=== PATIENT | male | born 1950 | race Two or more races ===

== ENCOUNTER 2017-01-05 20:48 | Emergency (ER) | payer BC ==
--- NOTE | 2017-01-05 21:22 | UC ---
Abdominal Pain Male HPI - HPI Summary HPI Summary: LLQ ABDOMINAL PAIN AND FEVER (101.4F) FOR TWO DAYS. HISTORY OF DIVERTICULITIS SIX YEARS AGO. NO NAUSEA NO VOMITING. NO DIARRHEA OR CONSTIPATION. 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 Onset/Duration: Gradual Onset, Lasting Days, Still Present Severity Initially: Mild Severity Currently: Moderate Location: Discrete At: LLQ Radiates to: LLQ Character: Aching, Dull Associated Signs And Symptoms: Negative: Fever, Cough, Chest Pain, Back Pain, Constipation, Blood in Stool, Urinary Symptoms, Decreased Appetite, Vomiting, Diarrhea - Risk Factors Testicular Torsion: Negative Cardiac Risk Factors: Negative - Allergies/Home Medications Allergies/Adverse Reactions: Allergies Allergy/AdvReac Type Severity Reaction Status Date / Time No Known Allergies Allergy Verified 01/05/17 20:55 Home Medications: Home Medications Glucosamine-Chondroitin [Glucosamine & Chondroitin 500-400 mg] 1 cap PO DAILY [History Confirmed 01/05/17] PMH/Surg Hx/FS Hx/Imm Hx Previously Healthy: Yes - Surgical History Surgical History: Yes Surgery Procedure, Year, and Place: LUMBAR L4-L5 SURGERY, LEFT KNEE SCOPE, RT KNEE SCOPE, LEFT ROTATOR CUFF REPAIR - Family History Known Family History: Negative: Blood Disorder - Social History Occupation: Employed Full-time Lives: With Family Alcohol Use: Occasionally Alcohol Amount: 2 BEERS/DAY Substance Use Type: None Smoking Status (MU): Never Smoked Tobacco Type: Cigarettes Amount Used/How Often: 1/2 PACK OR LESS PER WEEK Length of Time of Smoking/Using Tobacco: MANY YEARS Have You Smoked in the Last Year: Yes - Immunization History Most Recent Influenza Vaccination: 2013 Most Recent Tetanus Shot: UNKNOWN Most Recent Pneumonia Vaccination: NEVER Review of Systems Constitutional: Negative Skin: Negative Eyes: Negative ENT: Negative Respiratory: Negative Cardiovascular: Negative Gastrointestinal: Abdominal Pain - LLQ PAIN Genitourinary: Negative Motor: Negative Neurovascular: Negative Musculoskeletal: Negative Neurological: Negative Psychological: Negative All Other Systems Reviewed And Are Negative: Yes Physical Exam Triage Information Reviewed: Yes Appearance: Well-Appearing, Well-Nourished, Pain Distress - MODERATE Vital Signs: Initial Vital Signs Temp 100.3 F 01/05/17 20:50 Pulse 71 01/05/17 20:50 Resp 16 01/05/17 20:50 BP 125/70 01/05/17 20:50 Pulse Ox 95 01/05/17 20:50 Vital Signs Reviewed: Yes Eye Exam: Normal ENT Exam: Normal ENT: Positive: Normal ENT inspection, Hearing grossly normal, Pharynx normal, TMs normal Dental Exam: Normal Neck exam: Normal Neck: Positive: Supple, Nontender, No Lymphadenopathy Respiratory Exam: Normal Respiratory: Positive: Chest non-tender, Lungs clear, Normal breath sounds, No respiratory distress, No accessory muscle use Cardiovascular Exam: Normal Cardiovascular: Positive: RRR, No Murmur, Pulses Normal, Brisk Capillary Refill Abdomen Description: Positive: No Organomegaly, Soft. Negative: Nontender - PAIN TO PALPTION: LLQ, CVA Tenderness (R), CVA Tenderness (L), Distended, Guarding, McBurney's Point Tenderness Bowel Sounds: Positive: Present Musculoskeletal Exam: Normal Neurological Exam: Normal Psychological Exam: Normal Skin Exam: Normal Abd Pain Male Course/Dx - Differential Dx/Clinical Impression Differential Diagnosis/HQI/PQRI: Constipation, Diverticulitis, Ischemic Bowel, Ureteral Stone Provider Diagnoses: LLQ ABDOMINAL PAIN - Physician Notification/Consults Discussed Patient Care With: Maurice Snell Time Discussed With Above Provider: 21:10 Instructed by Provider To: MD Will See In ED Discharge - Discharge Plan Condition: Stable Disposition: TRANS HIGHER LVL OF CARE FAC Referrals: Farzaneh Posey [Primary Care Provider] -
[2017-01-05 21:30] VITALS: BP 126/72
== END 2017-01-05 21:25 | disposition short-term general hospital (02) ==
LOC: UCEAST 20:48
DX: R10.32 Left lower quadrant pain (principal); Z87.19 Personal history of other diseases of the digestive system; F17.210 Nicotine dependence, cigarettes, uncomplicated
CPT/HCPCS: 99212; G0463

== ENCOUNTER 2017-01-05 21:38 | Emergency (ER) | payer BC ==
[2017-01-05] MEDS ORDERED: NS 0.9% 1000 ML* 1,000 ML IV ONE (22:42)
[2017-01-05 22:54] LABS: Hematocrit 40 % (42-52); Hemoglobin 13.6 g/dl (14.0-18.0); Mean Corpuscular HGB Conc 34 g/dl (31-36); Mean Corpuscular Hemoglobin 32 pg (27-31); Mean Corpuscular Volume 94 fL (80-94); Mean Platelet Volume 8 um3 (7.4-10.4); Red Blood Count 4.29 10^6/ul (4.0-5.4); Red Cell Distribution Width 13 % (10.5-15); White Blood Count 9.1 10^3/ul (3.5-10.8)
[2017-01-05 23:02] LABS: Albumin 3.8 g/dL (3.2-5.2); BUN/Creatinine Ratio 19.8 (8-20); C Reactive Protein 29.3 mg/L (< 5.00); Calcium 9.1 mg/dL (8.6-10.3); EGFR African American 107.2 (>60); EGFR Non-African American 83.4 (>60); Globulin 2.7 g/dL (2-4); Magnesium 1.8 mg/dL (1.9-2.7); Potassium 4.6 mmol/L (3.5-5.0); Total Bilirubin 0.8 mg/dL (0.2-1.0); Total Protein 6.5 g/dL (6.4-8.9)
--- NOTE | 2017-01-05 23:04 | ED ---
Berkley Burdick Alfonso, scribed for Maurice Snell MD on 01/05/17 at 2259 . Abdominal Pain/Male - HPI Summary HPI Summary: This is patient is a 66 year old M presenting to [facility] c/o dull LLQ abdominal pain that began 2 days ago. He reports the pain began gradually and has been getting gradually worse. He rates the pain 4/10 in severity. Sx aggravated by exertion and alleviated by nothing. He reports a frontal headache, body aches, and a fever. He denies N/V/D, urinary symptoms, calf swelling, or change in appetite. The patient reports having similar symptoms 6 years ago diagnosed as diverticulitis. - History of Current Complaint Chief Complaint: EDAbdPain Stated Complaint: ABD PAIN/SENT FROM [facility] C[facility] Time Seen by Provider: 01/05/17 22:30 Hx Obtained From: Patient Onset/Duration: Gradual Onset, Lasting Days - 2 days, Worse Since Timing: Constant, Lasting Days - 2 days Severity Initially: Mild Severity Currently: Mild Pain Intensity: 4 Pain Scale Used: 0-10 Numeric Location: Discrete At: LLQ Character: Dull Aggravating Factor(s): Other: - Exertion Alleviating Factor(s): Nothing Associated Signs And Symptoms: Positive: Other - Positive frontal headache; negative calf swelling. Negative: Urinary Symptoms, Decreased Appetite, Nausea , Vomiting, Diarrhea - Allergies/Home Medications Allergies/Adverse Reactions: Allergies Allergy/AdvReac Type Severity Reaction Status Date / Time No Known Allergies Allergy Verified 01/05/17 20:55 PMH/Surg Hx/FS Hx/Imm Hx Endocrine/Hematology History: Denies: Hx Diabetes Cardiovascular History: Denies: Hx Hypertension, Hx Pacemaker/ICD Respiratory History: Denies: Hx Asthma History: Denies: Hx Dialysis, Hx Renal Disease Musculoskeletal History: Reports: Hx Tendonitis - BILAT Sensory History: Reports: Hx Contacts or Glasses - GLASSES Denies: Hx Hearing Aid Opthamlomology History: Reports: Hx Contacts or Glasses - GLASSES Psychiatric History: Denies: Hx Panic Disorder - Surgical History Surgery Procedure, Year, and Place: LUMBAR L4-L5 SURGERY, LEFT KNEE SCOPE, RT KNEE SCOPE, LEFT ROTATOR CUFF REPAIR Hx Anesthesia Reactions: No Infectious Disease History: No Infectious Disease History: Denies: Traveled Outside the [place] in Last 30 Days - Family History Known Family History: Negative: Blood Disorder - Social History Alcohol Use: Occasionally Alcohol Amount: 2 BEERS/DAY Substance Use Type: Reports: None Smoking Status (MU): Former Smoker Type: Cigarettes Amount Used/How Often: 1/2 PACK OR LESS PER WEEK Length of Time of Smoking/Using Tobacco: MANY YEARS Have You Smoked in the Last Year: Yes Review of Systems Positive: Fever Positive: Abdominal Pain - dull LLQ abdominal pain. Negative: Vomiting, Diarrhea, Nausea Positive: no symptoms reported Positive: Myalgia - Positive body aches, Edema - Negative calf swelling Neurological: Other - Positive frontal headache; negative change in appetite All Other Systems Reviewed And Are Negative: Yes Physical Exam Triage Information Reviewed: Yes Vital Signs On Initial Exam: Initial Vitals Temp Pulse Resp BP Pulse Ox 99.7 F 73 18 116/67 95 01/05/17 21:42 01/05/17 21:42 01/05/17 21:42 01/05/17 21:42 01/05/17 21:42 Vital Signs Reviewed: Yes Appearance: Positive: Well-Appearing, Pain Distress - mikld discomfort Skin: Positive: Warm Head/Face: Positive: Normal Head/Face Inspection Eyes: Positive: PRATIBHA ENT: Positive: Hearing grossly normal Neck: Positive: Supple Respiratory/Lung Sounds: Positive: Clear to Auscultation, Breath Sounds Present Cardiovascular: Positive: Normal Abdomen Description: Positive: No Organomegaly, Soft, Other: - mild llq tenderness. Negative: Distended, Guarding Bowel Sounds: Positive: Present Musculoskeletal: Positive: Strength/ROM Intact Neurological: Positive: Alert, Oriented to Person Place, Time Psychiatric: Positive: Affect/Mood Appropriate - Kirby Coma Scale Coma Scale Total: 15 Diagnostics - Vital Signs Vital Signs Temp Pulse Resp BP Pulse Ox 01/05/17 22:33 99.7 F 73 18 116/67 95 01/05/17 21:42 99.7 F 73 18 116/67 95 - Laboratory Lab Results: Lab Results 01/05/17 Range/Units 22:38 WBC 9.1 (3.5-10.8) 10^3/ul RBC 4.29 (4.0-5.4) 10^6/ul Hgb 13.6 L (14.0-18.0) g/dl Hct 40 L (42-52) % MCV 94 (80-94) fL MCH 32 H (27-31) pg MCHC 34 (31-36) g/dl RDW 13 (10.5-15) % Plt Count 191 (150-450) 10^3/ul MPV 8 (7.4-10.4) um3 Neut % (Auto) 76.5 (38-83) % Lymph % (Auto) 9.1 L (25-47) % [place] % (Auto) 10.1 H (1-9) % Eos % (Auto) 0.6 (0-6) % Baso % (Auto) 3.7 H (0-2) % Absolute Neuts (auto) 7.0 (1.5-7.7) 10^3/ul Absolute Lymphs (auto) 0.8 L (1.0-4.8) 10^3/ul Absolute Monos (auto) 0.9 H (0-0.8) 10^3/ul Absolute Eos (auto) 0.1 (0-0.6) 10^3/ul Absolute Basos (auto) 0.3 H (0-0.2) 10^3/ul Absolute Nucleated RBC 0 10^3/ul Nucleated RBC % 0 Result Diagrams: 01/05/17 22:38 01/05/17 22:38 Lab Statement: Any lab studies that have been ordered have been reviewed, and results considered in the medical decision making process. - CT CT A/P w/ contrast CT Interpretation Completed By: Radiologist - Moderate degree of acute proximal sigmoid diverticulitis, without secondary complication. Re-Evaluation - Re-Evaluation First Eval Change: Improved - results d/w pt Abdominal Pain Fem Course/Dx - Diagnoses Provider Diagnoses: Diverticulitis Discharge - Discharge Plan Condition: Stable Disposition: HOME Patient Education Materials: Diverticulitis (ED) Referrals: Farzaneh Posey [Primary Care Provider] - 7 Days The documentation as recorded by the Berkley juárez Alfonso accurately reflects the service I personally performed and the decisions made by , Maurice Snell MD.
[2017-01-05] MEDS ORDERED: Iohexol 300* (CONTRAST) 10 ML SDV IV ONE (23:22)
[2017-01-06] MEDS ORDERED: metroNIDAZOLE IV 500 MG/100ML* 500 MG/100 ML BAG IVPB ONE (01:50)
[2017-01-06] MEDS ORDERED: Levofloxacin 500 MG IVPREMIX(* 500 MG/100 ML BAG IVPB ONE (01:50)
[2017-01-06 04:14] VITALS: BP 122/56
--- NOTE | 2017-01-06 07:48 | RAD ---
INDICATION: Left lower quadrant abdominal pain. COMPARISON: Comparison is made with a prior CT of the abdomen and pelvis from May 30, 2010. TECHNIQUE: A CT scan of the abdomen and pelvis was performed with intravenous and oral contrast following intravenous injection of 131 ml of Omnipaque 300 nonionic contrast. Contiguous axial sections were obtained from the lung bases through the symphysis pubis. Images were reconstructed in the coronal and sagittal planes. FINDINGS: The lung bases are clear. No pleural effusion is present. The liver and spleen are normal in size. There are a couple small hypodense hepatic lesions within the right and left hepatic lobes measuring 5 mm each which are too small to characterize by CT possibly representing cysts. The lesion in the left hepatic lobe is unchanged from the prior exam. The right hepatic lesion is not well seen on the prior noncontrast study. No calcific gallstones are seen. The pancreas appears to be within normal limits. The kidneys and adrenal glands are normal in size. No hydronephrosis is seen. No significant focal renal abnormality is seen. The aorta is normal in caliber and demonstrates homogeneous contrast opacification. No significant enlarged retroperitoneal lymph nodes are seen. The stomach, small and large bowel appear nondistended. The appendix is within normal limits. There is moderate to severe descending and sigmoid diverticulosis with focal wall thickening of the distal descending and proximal sigmoid colon and stranding in the adjacent mesenteric fat. These findings are nonspecific although most consistent with diverticulitis. No abscess is seen. No free intraperitoneal air or fluid is seen. No significant focal osseous abnormality is seen. IMPRESSION: MODERATE TO SEVERE SIGMOID DIVERTICULOSIS AND THICKENING OF THE WALL OF THE DISTAL DESCENDING AND PROXIMAL SIGMOID COLON WITH SURROUNDING INTERSTITIAL STRANDING NONSPECIFIC ALTHOUGH MOST CONSISTENT WITH DIVERTICULITIS WITHOUT EVIDENCE FOR ABSCESS OR FREE AIR.
== END 2017-01-06 04:14 | disposition home or self-care (01) ==
LOC: ED 21:38
DX: K57.92 Diverticulitis of intestine, part unspecified, without perforation or abscess without bleeding (principal); Z87.891 Personal history of nicotine dependence
CPT/HCPCS: 36415; 74177; 80053; 83605; 83690; 83735; 85025; 86140; 96360; 96374; 96375; 99282; J1956; Q9967

== ENCOUNTER 2017-06-12 13:45 | Emergency (ER) | payer BC ==
[2017-06-12 15:53] VITALS: BP 146/72
[2017-06-12 15:57] LABS: Hematocrit 42 % (42-52); Hemoglobin 14.1 g/dl (14.0-18.0); Mean Corpuscular HGB Conc 34 g/dl (31-36); Mean Corpuscular Hemoglobin 32 pg (27-31); Mean Corpuscular Volume 95 fL (80-94); Mean Platelet Volume 7 um3 (7.4-10.4); Red Blood Count 4.39 10^6/ul (4.0-5.4); Red Cell Distribution Width 14 % (10.5-15); White Blood Count 10.2 10^3/ul (3.5-10.8)
[2017-06-12 16:19] LABS: Albumin 3.7 g/dL (3.2-5.2); BUN/Creatinine Ratio 12.5 (8-20); C Reactive Protein 16.71 mg/L (< 5.00); Calcium 8.6 mg/dL (8.6-10.3); EGFR African American 100.8 (>60); EGFR Non-African American 78.4 (>60); Globulin 2.6 g/dL (2-4); Potassium 4.2 mmol/L (3.5-5.0); Total Bilirubin 0.9 mg/dL (0.2-1.0); Total Protein 6.3 g/dL (6.4-8.9)
[2017-06-12 16:32] LABS: Urine Bilirubin Negative (Negative); Urine Glucose Negative (Negative); Urine Nitrite Negative (Negative)
[2017-06-12] MEDS ORDERED: Iohexol 300* (CONTRAST) 10 ML SDV IV ONE (17:30)
--- NOTE | 2017-06-12 18:20 | RAD ---
INDICATION: Left lower quadrant pain COMPARISON: CT January 06, 2017 TECHNIQUE: Axial source images were obtained from the hemidiaphragms to the symphysis pubis following administration of oral and intravenous contrast. 131 mL Omnipaque 300 was utilized. Coronal and sagittal reconstructed images were acquired. Lung bases: The lung bases are clear. Liver: The liver is normal in size. There are no masses. There is no ductal dilatation. Gallbladder: There are no calcified gallstones. There is no evidence of wall thickening or pericholecystic fluid. Spleen: The spleen is normal in size. There are no masses. Pancreas: There is no focal pancreatic mass or ductal dilatation. Adrenal glands: There is no evidence of adrenal mass. Kidneys: The kidneys are normal in size and position. There are prompt nephrograms and there is prompt excretion bilaterally. There are no renal parenchymal masses. There is no evidence of nephrolithiasis. Adenopathy: There is no evidence of adenopathy by size criteria. Fluid collections: There are no free or localized fluid collections. Vessels:There are no significant atherosclerotic changes involving the aorta. There is no focal aneurysm. The iliac vessels are normal in caliber. The IVC appears normal. GI tract: The upper GI tract is unremarkable. There are moderate diverticula of the descending colon. At the level of the distal descending colon there is bowel wall thickening and adjacent mesenteric stranding consistent with acute diverticulitis. There are extensive diverticula of the remainder the sigmoid colon. There are no findings of obstruction, perforation, or abscess formation. Pelvic organs: The prostate and seminal vesicles appear normal Bladder: There are no bladder masses. Abdominal and pelvic soft tissues: Small bilateral fat-containing inguinal hernias. Osseous structures: No acute osseous changes. Hemilaminectomy left L4-L5 level. Other: None IMPRESSION: CT FINDINGS OF ACUTE DIVERTICULITIS WITHOUT OBSTRUCTION OR ABSCESS.
[2017-06-12] MEDS ORDERED: Ciprofloxacin 400MG IVPREMIX(* 400 MG/200 ML BAG IVPB ONE (18:32)
[2017-06-12] MEDS ORDERED: metroNIDAZOLE TAB* 250 MG PO ONE ×2 (18:33→20:29)
[2017-06-12] MEDS ORDERED: Ibuprofen TAB* 600 MG PO ONE (19:53)
[2017-06-12] MEDS ORDERED: Acetaminophen TAB* 325 MG ONE (19:56)
--- NOTE | 2017-06-15 13:21 | ED ---
Chucky Burdick Thomas, scribed for Cholo Campbell MD on 06/12/17 at 1550 . Abdominal Pain/Male - HPI Summary HPI Summary: The pt is a 66 y/o M presenting to the ED c/o LLQ abd pain that began yesterday. The pain is constant. The pain is rated 2/10 at baseline but spikes significantly on palpation. The pain is alleviated by nothing. 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 Pt denies fever, N/V/D, constipation, and anorexia. PMHx includes diverticulitis. - History of Current Complaint Chief Complaint: EDAbdPain Stated Complaint: ABD PAIN Time Seen by Provider: 06/12/17 15:28 Hx Obtained From: Patient Onset/Duration: Lasting Days - 1, Still Present Timing: Constant Severity Currently: Mild Pain Intensity: 2 Pain Scale Used: 0-10 Numeric Location: Discrete At: LLQ Radiates: No Aggravating Factor(s): Other: - Palpation Alleviating Factor(s): Nothing Associated Signs And Symptoms: Negative: Fever, Constipation, Nausea, Vomiting, Diarrhea, Other - anorexia - Allergies/Home Medications Allergies/Adverse Reactions: Allergies Allergy/AdvReac Type Severity Reaction Status Date / Time No Known Allergies Allergy Verified 01/05/17 20:55 PMH/Surg Hx/FS Hx/Imm Hx Previously Healthy: No Endocrine/Hematology History: Denies: Hx Diabetes Cardiovascular History: Denies: Hx Hypertension, Hx Pacemaker/ICD Respiratory History: Denies: Hx Asthma GI History: Reports: Other GI Disorders - Hx diverticulitis History: Denies: Hx Dialysis, Hx Renal Disease Musculoskeletal History: Reports: Hx Tendonitis - BILAT Sensory History: Reports: Hx Contacts or Glasses - GLASSES Denies: Hx Hearing Aid Opthamlomology History: Reports: Hx Contacts or Glasses - GLASSES Psychiatric History: Denies: Hx Panic Disorder - Surgical History Surgery Procedure, Year, and Place: LUMBAR L4-L5 SURGERY, LEFT KNEE SCOPE, RT KNEE SCOPE, LEFT ROTATOR CUFF REPAIR Hx Anesthesia Reactions: No Infectious Disease History: No Infectious Disease History: Denies: Traveled Outside the [place] in Last 30 Days - Family History Known Family History: Negative: Blood Disorder - Social History Lives: With Family Alcohol Use: Daily Alcohol Amount: 2 BEERS/DAY Hx Substance Use: No Substance Use Type: Reports: None Hx Tobacco Use: Yes Smoking Status (MU): Former Smoker Type: Cigarettes Amount Used/How Often: 1/2 PACK OR LESS PER WEEK Length of Time of Smoking/Using Tobacco: MANY YEARS Have You Smoked in the Last Year: Yes Review of Systems Negative: Fever Positive: Abdominal Pain. Negative: Vomiting, Diarrhea, Nausea, Other - anorexia, constipation All Other Systems Reviewed And Are Negative: Yes Physical Exam - Summary Physical Exam Summary: VITAL SIGNS: Reviewed. GENERAL: Patient is a well-developed and nourished male who is lying comfortable in the stretcher. Patient is not in any acute respiratory distress. HEAD AND FACE: Normocephalic and atraumatic. EYES: PERRLA, EOMI x 2, No injected conjunctiva. EARS: Hearing grossly intact. Ear canals and tympanic membranes are WNL. MOUTH: Oropharynx within normal limits. NECK: Supple, trachea is midline, no adenopathy, no JVD. CHEST: Symmetric, no tenderness at palpation LUNGS: Clear to auscultation bilaterally. No wheezing or crackles. CVS: RRR, S1 and S2 present, no murmurs or gallops appreciated. ABDOMEN: Soft. He has left lower quadrant tenderness. No signs of distention. Positive bowel sounds. No rebound no guarding, and no masses palpated. No abdominal bruit or pulsations. EXTREMITIES: FROM in all major joints, no edema, no cyanosis or clubbing. NEURO: Alert and oriented x 3. No acute neurological deficits. Speech is normal. SKIN: Dry and warm Triage Information Reviewed: Yes Vital Signs On Initial Exam: Initial Vitals Temp Pulse Resp BP Pulse Ox 97.5 F 72 16 136/73 99 06/12/17 14:03 06/12/17 14:03 06/12/17 14:03 06/12/17 14:03 06/12/17 14:03 Vital Signs Reviewed: Yes Diagnostics - Vital Signs Vital Signs Temp Pulse Resp BP Pulse Ox 06/12/17 14:03 97.5 F 72 16 136/73 99 - Laboratory Lab Results: Lab Results 06/12/17 06/12/17 06/12/17 Range/Units 15:47 15:47 15:57 WBC 10.2 (3.5-10.8) 10^3/ul RBC 4.39 (4.0-5.4) 10^6/ul Hgb 14.1 (14.0-18.0) g/dl Hct 42 (42-52) % MCV 95 H (80-94) fL MCH 32 H (27-31) pg MCHC 34 (31-36) g/dl RDW 14 (10.5-15) % Plt Count 209 (150-450) 10^3/ul MPV 7 L (7.4-10.4) um3 Neut % (Auto) 74.5 (38-83) % Lymph % (Auto) 14.9 L (25-47) % [place] % (Auto) 9.4 H (1-9) % Eos % (Auto) 0.7 (0-6) % Baso % (Auto) 0.5 (0-2) % Absolute Neuts (auto) 7.6 (1.5-7.7) 10^3/ul Absolute Lymphs (auto) 1.5 (1.0-4.8) 10^3/ul Absolute Monos (auto) 1.0 H (0-0.8) 10^3/ul Absolute Eos (auto) 0.1 (0-0.6) 10^3/ul Absolute Basos (auto) 0 (0-0.2) 10^3/ul Absolute Nucleated RBC 0 10^3/ul Nucleated RBC % 0 Sodium 137 (133-145) mmol/L Potassium 4.2 (3.5-5.0) mmol/L Chloride 104 (101-111) mmol/L Carbon Dioxide 27 (22-32) mmol/L Anion Gap 6 (2-11) mmol/L BUN 12 (6-24) mg/dL Creatinine 0.96 (0.67-1.17) mg/dL Est GFR ( Amer) 100.8 (>60) Est GFR (Non-Af Amer) 78.4 (>60) BUN/Creatinine Ratio 12.5 (8-20) Glucose 95 (70-100) mg/dL Calcium 8.6 (8.6-10.3) mg/dL Total Bilirubin 0.90 (0.2-1.0) mg/dL AST 11 L (13-39) U/L ALT 8 (7-52) U/L Alkaline Phosphatase 54 (34-104) U/L C-Reactive Protein 16.71 H (< 5.00) mg/L Total Protein 6.3 L (6.4-8.9) g/dL Albumin 3.7 (3.2-5.2) g/dL Globulin 2.6 (2-4) g/dL Albumin/Globulin Ratio 1.4 (1-3) Lipase 14 (11.0-82.0) U/L Urine Color Yellow Urine Appearance Clear Urine pH 5.0 (5-9) Ur Specific [place] 1.013 (1.010-1.030) Urine Protein Negative (Negative) Urine Ketones Trace H (Negative) Urine Blood Negative (Negative) Urine Nitrate Negative (Negative) Urine Bilirubin Negative (Negative) Urine Urobilinogen Negative (Negative) Ur Leukocyte Esterase Negative (Negative) Urine Glucose Negative (Negative) Hepatitis C Antibody (Nonreactive) 06/12/17 Range/Units 15:57 WBC (3.5-10.8) 10^3/ul RBC (4.0-5.4) 10^6/ul Hgb (14.0-18.0) g/dl Hct (42-52) % MCV (80-94) fL MCH (27-31) pg MCHC (31-36) g/dl RDW (10.5-15) % Plt Count (150-450) 10^3/ul MPV (7.4-10.4) um3 Neut % (Auto) (38-83) % Lymph % (Auto) (25-47) % [place] % (Auto) (1-9) % Eos % (Auto) (0-6) % Baso % (Auto) (0-2) % Absolute Neuts (auto) (1.5-7.7) 10^3/ul Absolute Lymphs (auto) (1.0-4.8) 10^3/ul Absolute Monos (auto) (0-0.8) 10^3/ul Absolute Eos (auto) (0-0.6) 10^3/ul Absolute Basos (auto) (0-0.2) 10^3/ul Absolute Nucleated RBC 10^3/ul Nucleated RBC % Sodium (133-145) mmol/L Potassium (3.5-5.0) mmol/L Chloride (101-111) mmol/L Carbon Dioxide (22-32) mmol/L Anion Gap (2-11) mmol/L BUN (6-24) mg/dL Creatinine (0.67-1.17) mg/dL Est GFR ( Amer) (>60) Est GFR (Non-Af Amer) (>60) BUN/Creatinine Ratio (8-20) Glucose (70-100) mg/dL Calcium (8.6-10.3) mg/dL Total Bilirubin (0.2-1.0) mg/dL AST (13-39) U/L ALT (7-52) U/L Alkaline Phosphatase (34-104) U/L C-Reactive Protein (< 5.00) mg/L Total Protein (6.4-8.9) g/dL Albumin (3.2-5.2) g/dL Globulin (2-4) g/dL Albumin/Globulin Ratio (1-3) Lipase (11.0-82.0) U/L Urine Color Urine Appearance Urine pH (5-9) Ur Specific [place] (1.010-1.030) Urine Protein (Negative) Urine Ketones (Negative) Urine Blood (Negative) Urine Nitrate (Negative) Urine Bilirubin (Negative) Urine Urobilinogen (Negative) Ur Leukocyte Esterase (Negative) Urine Glucose (Negative) Hepatitis C Antibody Nonreactive (Nonreactive) Result Diagrams: 06/12/17 15:47 06/12/17 15:47 Lab Statement: Any lab studies that have been ordered have been reviewed, and results considered in the medical decision making process. - CT CT Abd/Pel CT Interpretation: Positive (See Comments) - CT FINDINGS OF ACUTE DIVERTICULITIS WITHOUT OBSTRUCTION OR ABSCESS. ED physician has reviewed this report and agrees. CT Interpretation Completed By: Radiologist - EKG 16:06 Cardiac Rate: NL EKG Rhythm: Sinus Rhythm EKG Interpretation: [address] elevations. Abdominal Pain Fem Course/Dx - Course Assessment/Plan: The pt is a 66 y/o M presenting to the ED c/o LLQ abd pain that began yesterday. The pain is constant. The pain is rated 2/10 at baseline but spikes significantly on palpation. The pain is alleviated by nothing. 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 Pt denies fever, N/V/D, constipation, and anorexia. PMHx includes diverticulitis. Test results are without significant abnormality except CRP of 16.7. Urinalysis is negative for UTI. CT Abd/Pel shows CT FINDINGS OF ACUTE DIVERTICULITIS WITHOUT OBSTRUCTION OR ABSCESS. In the ED course, the patient was given Ciprofloxacin and Flagyl for acute diverticulitis. He will be discharged home with follow up by primary care. The patient is hemodynamically stable and alert and oriented x3. - Diagnoses Provider Diagnoses: Diverticulitis Discharge - Discharge Plan Condition: Stable Disposition: HOME Prescriptions: Ciprofloxacin TAB* [Cipro 500 MG TAB*] 500 mg PO BID #20 tab Metronidazole [Flagyl 500 MG TAB] 500 mg PO TID #30 tab Patient Education Materials: Diverticulitis (ED), Diverticulitis Diet (ED) Referrals: Farzaneh Posey [Primary Care Provider] - 3 Days Additional Instructions: Follow up with your primary care provider in 3 days. Return to the emergency department for any new or worsening symptoms. The documentation as recorded by the Chucky juárez Thomas accurately reflects the service I personally performed and the decisions made by Adrian farrell Walter, MD.
== END 2017-06-12 20:40 | disposition home or self-care (01) ==
LOC: ED 13:45
DX: K57.32 Diverticulitis of large intestine without perforation or abscess without bleeding (principal); Z87.891 Personal history of nicotine dependence
CPT/HCPCS: 36415; 74177; 80053; 81003; 83690; 85025; 86140; 86803; 93005; 96365; 99282; A9270-GY; J0744; Q9967